=== PATIENT | female | born 1960 | race Caucasian/White ===

== ENCOUNTER 2016-09-09 22:47 | Observation (INO) | payer OTHER ==
[~2016-09-09] VITALS: Ht 162.6 cm; Wt 99.9 kg
[2016-09-10 00:17] LABS: HEMOGLOBIN 14.2 gm/dl (12.3-15.3); RED BLOOD COUNT 4.68 M/UL (4.00-5.10); WHITE BLOOD COUNT 8.5 K/UL (4.5-11.0)
[2016-09-10 00:41] LABS: BUN/CREATININE RATIO 31 (0-10)
[2016-09-10] MEDS ORDERED: LYRICA300 MG PO (07:30)
[2016-09-10] MEDS ORDERED: CYMBALTA60 MG PO (07:30)
[2016-09-10] MEDS ORDERED: NITROSTAT 0.40.4 MG SL (07:31)
[2016-09-10] MEDS ORDERED: VITAMIN D250000 UNIT PO (07:31)
[2016-09-11 07:19] LABS: HEMOGLOBIN 13.5 gm/dl (12.3-15.3); RED BLOOD COUNT 4.52 M/UL (4.00-5.10); WHITE BLOOD COUNT 7.4 K/UL (4.5-11.0)
[2016-09-11 07:26] LABS: BUN/CREATININE RATIO 30 (0-10)
--- NOTE | 2016-09-11 17:59 | NUR ---
CURRENTLY THE PATIENT IS RESTING WITH NO C/O PAIN. SOAP SUDS ENEMA WAS GIVEN WITH A SMALL BM REPORTED BY THE PATIENT. AWAITING FOR DR. VELAZQUEZ TO FILL OUT THE DISCHARGE MED REC. ALTHOUGH THE PATIENT STATED THAT SHE WAS NOT LEAVING UNTIL SHE FEELS CLEANED OUT. WILL CONTINUE TO MONITOR
[2016-09-12] MEDS ORDERED: MIRALAX17 GM PO (12:46)
[2016-09-12] MEDS ORDERED: DULCOLAX5 MG PO (12:46)
[2016-09-12] MEDS ORDERED: PROTONIX 40 MG40 M1 PO (12:47)
== END 2016-09-12 08:05 | disposition home or self-care (01) ==
LOC: ER1 22:47 → ZEROF 09-10 04:00 → M/S 09-10 04:00
PROVIDERS: Family Medicine; ADMIT Emergency Medicine
PROC: 0DB68ZX Excision of Stomach, Via Natural or Artificial Opening Endoscopic, Diagnostic (ICD-10-PCS; principal; 2016-09-10)
DX: K29.00 Acute gastritis without bleeding (principal); K21.0 Gastro-esophageal reflux disease with esophagitis; R07.89 Other chest pain; E55.9 Vitamin D deficiency, unspecified; E53.8 Deficiency of other specified B group vitamins; G60.9 Hereditary and idiopathic neuropathy, unspecified; Z87.19 Personal history of other diseases of the digestive system; Z88.1 Allergy status to other antibiotic agents; Z88.8 Allergy status to other drugs, medicaments and biological substances; Z79.899 Other long term (current) drug therapy; Z90.49 Acquired absence of other specified parts of digestive tract; Z98.890 Other specified postprocedural states
CPT/HCPCS: 36415; 71010; 74000; 80048; 80053; 82150; 82550; 82553; 83690; 83874; 84484; 85025; 85027; 85379; 93005; 96365; 99285; C9113; G0378; J1885; J2250; J3010; J7040; J7050; Q9963

== ENCOUNTER → 2020-04-24 | Day surgery (SDC) | payer OTHER, MEDICARE ==
[~2020-04-24] MED LIST: AMANTADINE100 M1 PO; Bromphed DM PO; CYANOCOBAL1000 MCG/1 INJ; CYMBALTA60 MG PO; DULCOLAX5 MG PO; ENDOCET 10-3251 EACH PO; FLONASE 0.05% N16 GM; LISINOPRIL10 MG PO; LISINOPRIL5 MG PO; LYRICA150 MG PO; MELOXICAM7.5 MG PO; MIRALAX17 GM PO; NITROSTAT 0.40.4 MG SL; NORCO 5-325 TA1 EACH PO; NORVASC10 MG PO; OXYCODONE HCL5 M1 PO; PERCOCET 5/325 T1 EA PO; PREDNISONE 50 M50 MG PO; PREDNISONE20 MG PO; PROTONIX 40 MG40 M1 PO; ROPINIROLE HCL0.5 MG PO; VITAMIN D250000 UNIT PO; VYVANSE40 MG PO; ZITHROMAX250 MG PO; ZOFRAN4 MG PO
== END | disposition home or self-care (01) ==
LOC: OR 06:17
DX: K29.60 Other gastritis without bleeding (principal); K21.9 Gastro-esophageal reflux disease without esophagitis; I10 Essential (primary) hypertension; G35 Multiple sclerosis; E66.8 Other obesity; Z90.49 Acquired absence of other specified parts of digestive tract; Z87.19 Personal history of other diseases of the digestive system; Z80.3 Family history of malignant neoplasm of breast; Z80.0 Family history of malignant neoplasm of digestive organs; Z80.59 Family history of malignant neoplasm of other urinary tract organ; Z68.34 Body mass index [BMI] 34.0-34.9, adult; Z98.890 Other specified postprocedural states; Z79.899 Other long term (current) drug therapy
CPT/HCPCS: J2704; J3010; J7040

== ENCOUNTER → 2020-11-15 | Outpatient (CLI) | payer OTHER, MEDICARE ==
[2020-11-15 16:21] LABS: HEMOGLOBIN 14.6 gm/dl (12.3-15.3); RED BLOOD COUNT 4.6 M/UL (4.00-5.10); WHITE BLOOD COUNT 6.5 K/UL (4.5-11.0)
[2020-11-15 16:39] LABS: BUN/CREATININE RATIO 18 (0-10)
== END ==
LOC: LAB 15:08
PROVIDERS: Psychiatry & Neurology Neurology
DX: Z51.81 Encounter for therapeutic drug level monitoring (principal); G35 Multiple sclerosis
CPT/HCPCS: 80053; 85025

== ENCOUNTER → 2021-04-15 | Outpatient (CLI) | payer OTHER, MEDICARE ==
[~2021-04-15] VITALS: Ht 162.6 cm; Wt 88.5 kg
== END ==
LOC: OPSV 12:00
DX: G35 Multiple sclerosis (principal); Z51.81 Encounter for therapeutic drug level monitoring
CPT/HCPCS: 96365; J2930; J7070

== ENCOUNTER → 2021-04-16 | Outpatient (CLI) | payer OTHER, MEDICARE ==
[~2021-04-16] VITALS: Ht 162.6 cm; Wt 88.5 kg
== END ==
LOC: OPSV 11:28
DX: G35 Multiple sclerosis (principal)
CPT/HCPCS: 96365; J2930; J7030

== ENCOUNTER → 2021-04-17 | Outpatient (CLI) | payer OTHER, MEDICARE ==
[~2021-04-17] VITALS: Ht 162.6 cm; Wt 88.5 kg
[2021-04-17 13:19] LABS: HEMOGLOBIN 13.5 gm/dl (12.3-15.3); RED BLOOD COUNT 4.33 M/UL (4.00-5.10); WHITE BLOOD COUNT 12.7 K/UL (4.5-11.0)
[2021-04-17 13:40] LABS: BUN/CREATININE RATIO 34 (0-10)
[2021-04-19 13:08] LABS: CHOLESTEROL, TOTAL 173 mg/dL (100-199); HDL SIZE 10.7 nm (>=9.2); HDL-C 86 mg/dL (>39); HDL-P (TOTAL) 34.6 umol/L (>=30.5); LARGE HDL-P 17.8 umol/L (>=4.8); LARGE VLDL-P 5.9 nmol/L (<=2.7); LDL-C 66 mg/dL (0-99); LDL-P 515 nmol/L (<1000); LP-IR SCORE 46 (<=45); SMALL LDL-P <90 nmol/L (<=527); TRIGLYCERIDES 125 mg/dL (0-149); VLDL SIZE 62.1 nm (<=46.6)
== END ==
LOC: OPSV 12:00
PROVIDERS: Emergency Medicine
DX: G35 Multiple sclerosis (principal); G43.709 Chronic migraine without aura, not intractable, without status migrainosus; I10 Essential (primary) hypertension; M79.7 Fibromyalgia; K21.9 Gastro-esophageal reflux disease without esophagitis; Z88.1 Allergy status to other antibiotic agents
CPT/HCPCS: 36415; 80053; 80061; 83704; 84443; 84550; 85025; 96365; J2930; J7030

== ENCOUNTER → 2021-10-16 | Outpatient (CLI) | payer OTHER, MEDICARE ==
[~2021-10-16] VITALS: Ht 162.6 cm; Wt 88.5 kg
== END ==
LOC: OPSV 14:11
DX: G35 Multiple sclerosis (principal)
CPT/HCPCS: 96365; J2930; J7030

== ENCOUNTER → 2021-10-17 | Outpatient (CLI) | payer OTHER, MEDICARE | LOC: OPSV 13:41 | DX: G35 Multiple sclerosis (principal) | CPT/HCPCS: 96365; J2930; J7030 ==

== ENCOUNTER → 2021-10-22 | Outpatient (CLI) | payer OTHER, MEDICARE ==
[~2021-10-22] VITALS: Ht 162.6 cm; Wt 88.5 kg
== END ==
LOC: OPSV 13:30
DX: G35 Multiple sclerosis (principal)
CPT/HCPCS: 96365; J2930; J7070